=== PATIENT | male | born 1950 | race Caucasian/White ===

== ENCOUNTER 2022-03-24 05:55 | Day surgery (SDC) | payer MEDICARE, OTHER ==
[~2022-03-24] VITALS: Ht 177.8 cm; Wt 123.0 kg
[~2022-03-24 05:55] MED LIST: ADULT LOW DOSE81 MG PO; ELIQUIS5 MG PO; LISINOPRIL5 MG PO; MACULAR HEALTH1 EACH PO; MELATONIN3 MG PO; NORVASC10 MG PO; PRAVASTATIN SOD40 MG PO; PRAZOSIN HCL1 MG PO; PRO OMEGA; PROTONIX40 M1 PO; SOAANZ20 MG PO; TOPROL XL50 MG PO; TRAZODONE HCL50 MG PO; VENTOLIN HFA18 GM
--- NOTE | 2022-03-24 08:10 | NUR ---
03/24/22 0810 Aye Sheldon 0802 PT TO PACU SLEEPING NON REACTIVE. PT REMAINS IN AFIB, HAS HX OF AFIB.
--- NOTE | 2022-03-24 08:16 | NUR ---
PT IS ALERT, ORIENTED AND SUPPORTED BY HIS ELIE. ALL QUESTIONS ASKED ANSWERED. RISA LOEPZ HERE FOR PT. WILL FOLLOW
--- NOTE | 2022-03-24 10:25 | OR ---
[facility] [address], [place] [address] Signed DATE OF OPERATION: 03/24/2022 SURGEON: Inocente Meyer MD PREOPERATIVE DIAGNOSES: 1. Bloating. 2. Early satiety. 3. Personal history of colonic polyps in 2005. POSTOPERATIVE DIAGNOSES: 1. Small hiatal hernia. 2. Mild diffuse gastritis. 3. Minimal sigmoid diverticulosis. 4. Dlzsguf-zs-rhecwkfl internal hemorrhoids. PROCEDURES: 1. Esophagogastroduodenoscopy with CLOtest and biopsies of the antrum. 2. Colonoscopy with hot biopsy. ESTIMATED BLOOD LOSS: None. INDICATIONS: Fredis is a 71-year-old obese gentleman, asked to see me for upper and lower endoscopy. He spoke of upper and lower endoscopy around 2005. He said the upper endoscopy was unremarkable. He thinks two tiny polyps were removed from his colon. He is pretty sure he was told to follow up in 10 years. We have been trying to track down those results. He is pretty sure I did that for him. He is also having trouble with bloating and early satiety. He said he chews the food fine and swallows fine, and therefore does not have esophageal dysphagia. He thinks his stomach is pushing on the diaphragm. He also has a significant gag reflex. He talked about hoarseness of the voice, but he seemed to do fine in the office. No specific lower GI complaints. No family history of colon cancer or polyps. In the office, I gave him a pamphlet on upper and lower endoscopy. We reviewed the nature of those two tests. He understands there is risk including, but not limited to gas bloating, crampy abdominal pain, bleeding, perforation requiring surgery, and missed diagnosis. Also, because of his size and his advanced medical issues, we asked anesthesia provider help us with increased monitoring sedation with propofol. He had expressed understanding and wished to proceed. PROCEDURE NOTE: Electronically Signed By: INOCENTE MEYER MD 03/24/22 1025 PATIENT NAME: FREDIS FRANCIS OPERATIVE REPORT DATE OF : 52 REPORT #: [id number] PHYSICIAN: INOCENTE MEYER MD PCP: MITZI YANEZ MD REPORT IS CONFIDENTIAL AND NOT TO BE RELEASED WITHOUT AUTHORIZATION [facility] [address], [place] [address] Signed Fredis was taken into the endoscopy suite and placed in the supine semi-recumbent position. A bite block was utilized for the case. He was given monitored anesthesia care to include propofol per our nurse human resources receptionist. The adult gastroscope was introduced and advanced under direct visualization of camera without difficulty. The duodenum and pyloric channel were unremarkable. The stomach showed very mild diffuse erythematous changes. There were no ulcerations. We took a biopsy from the antrum for CLOtest as well as pathologic review. Upon retroflexion of the scope, he has a small hiatal hernia. We withdrew the scope up to the area of the GE junction, which was compliant without stricture. Overall, the Z-line remains intact. There was no Suh mucosa, he started to cough. We could not measure out the small hiatal hernia. The distal, middle, and upper esophagus were unremarkable. After this, the gas was suctioned out and the gastroscope removed. Fredis tolerated the upper endoscopy quite well. Fredis was then rotated into the left lateral decubitus position. He was maintained on monitored anesthesia care per our nurse human resources receptionist. A digital rectal exam was performed. He had a small external anal skin tag on the right, not much in the way of external hemorrhoids. Good sphincter tone. The adult colonoscope had been introduced and advanced quite readily into the cecum itself. His prep was good. We could easily see the appendiceal orifice and the ileocecal valve. The scope was then slowly withdrawn. We took pictures throughout for photodocumentation. He had just a few diverticula in the sigmoid colon. They were moderate in size, few in number, and scattered about. We saw no polyps on this occasion. Upon retroflexion of scope, he has buvdfyk-zc-padvyomv internal hemorrhoid columns. After this, the gag was suctioned out, colonoscope removed. Fredis tolerated the procedure quite well. RECOMMENDATIONS: I will see Fredis back in my office in 7 to 14 days to review his results. Inocente Meyer MD ALB/MODL /[id number] cc: Mitzi Yanez MD Electronically Signed By: INOCENTE MEYER MD 03/24/22 1025 PATIENT NAME: FREDIS FRANCIS OPERATIVE REPORT DATE OF : 52 REPORT #: [id number] PHYSICIAN: INOCENTE MEYER MD PCP: MITZI YANEZ MD REPORT IS CONFIDENTIAL AND NOT TO BE RELEASED WITHOUT AUTHORIZATION [place] [id number] Signed Patient Chart Inocente Meyer MD Copies: MITZI YANEZ MD, ANDREW L MD ~ Electronically Signed By: INOCENTE MEYER MD 03/24/22 1025 PATIENT NAME: TITOFREDIS ULICES OPERATIVE REPORT DATE OF : 52 REPORT #: [id number] PHYSICIAN: INOCENTE MEYER MD PCP: MITZI YANEZ MD REPORT IS CONFIDENTIAL AND NOT TO BE RELEASED WITHOUT AUTHORIZATION
--- NOTE | 2022-03-27 16:29 | PATH ---
[facility] [address] [place], [place] [address] Signed SPECIMEN(S): A ANTRUM/PYLORUS BIOPSY SPECIMEN SOURCE: A. ANTRUM/PYLORUS BIOPSY CLINICAL HISTORY: Bloating, early satiety, history of polyps. Post-op: Mild gastritis, small hiatal hernia, diverticulosis, hemorrhoids. FINAL PATHOLOGIC DIAGNOSIS: Stomach, antrum/pylorus, biopsy: - Antral mucosa with chronic, inactive gastritis. - Negative for Helicobacter organisms on HE stain. - Negative for dysplasia or malignancy. NAL:cml:C2NR MICROSCOPIC EXAMINATION: Histologic sections of all submitted blocks are examined by light microscopy. These findings, together with the gross examination, support the pathologic diagnosis. GROSS DESCRIPTION: The specimen, labeled "SH, 1," and designated on the requisition "antrum/pylorus," is received in formalin and consists of one brock soft tissue fragment that measures 0.4 cm in greatest dimension. The specimen is entirely submitted in cassette (A1). AT (under the direct supervision of a pathologist) The Gross Description was prepared using a voice recognition system. The report was reviewed for accuracy; however, sound-alike word errors, addition and/or deletions may occur. If there is any question about this report, please contact Client Services. PERFORMING LABORATORY: The technical component was performed by [facility], [address] [place] [id number] (CLIA# [id number]). [facility], [address] [address] (CLIA# [id number]). Diagnostician: Adelina Canchola MD Pathologist PATIENT NAME: BONI FRANCIS PATHOLOGY DATE OF : 52 REPORT #: [id number] PHYSICIAN: [facility] PCP: MITZI MAZA MD REPORT IS CONFIDENTIAL AND NOT TO BE RELEASED WITHOUT AUTHORIZATION [address] [address] Signed Electronically Signed 03/27/2022 Copies: ~ PATIENT NAME: BONI FRANCIS PATHOLOGY DATE OF : 52 REPORT #: [id number] PHYSICIAN: [facility] PCP: MITZI MAZA MD REPORT IS CONFIDENTIAL AND NOT TO BE RELEASED WITHOUT AUTHORIZATION
== END 2022-03-24 08:50 | disposition home or self-care (01) ==
LOC: DS 05:55 → OPS 05:55 → DS 07:00 → OPS 07:00 → DS 09:00
PROVIDERS: ATTEND Colon & Rectal Surgery
PROC: 0DB78ZX Excision of Stomach, Pylorus, Via Natural or Artificial Opening Endoscopic, Diagnostic (ICD-10-PCS; principal; 2022-03-24 07:00)
PROC: 0DJD8ZZ Inspection of Lower Intestinal Tract, Via Natural or Artificial Opening Endoscopic (ICD-10-PCS; 2022-03-24 07:00)
DX: K29.50 Unspecified chronic gastritis without bleeding (principal); K44.9 Diaphragmatic hernia without obstruction or gangrene; K57.30 Diverticulosis of large intestine without perforation or abscess without bleeding; K64.8 Other hemorrhoids; I10 Essential (primary) hypertension; E78.5 Hyperlipidemia, unspecified; I48.91 Unspecified atrial fibrillation; E66.9 Obesity, unspecified; Z68.41 Body mass index [BMI] 40.0-44.9, adult; Z86.010 Personal history of colon polyps
CPT/HCPCS: 36415; 87077; J0330; J0690; J1100; J1885; J2250; J2405; J2704; J2765; J3010; J7121

== ENCOUNTER 2022-12-03 21:03 | Emergency (ER) | payer MEDICARE, OTHER ==
[~2022-12-03] VITALS: Ht 177.8 cm; Wt 122.5 kg
[~2022-12-03 21:03] MED LIST changes: +FLOMAX0.4 MG PO; +HYDROCODON-ACE1 EA10 PO; +ONDANSETRON ODT4 MG PO
[2022-12-03] MEDS ORDERED: FLOMAX0.4 MG PO (23:47)
[2022-12-03] MEDS ORDERED: PERCOCET 5-3251 EACH PO (23:47)
[2022-12-03] MEDS ORDERED: ONDANSETRON ODT8 MG PO (23:47)
== END 2022-12-04 00:09 | disposition home or self-care (01) ==
LOC: ED 21:03
DX: N13.2 Hydronephrosis with renal and ureteral calculous obstruction (principal); I10 Essential (primary) hypertension; I48.91 Unspecified atrial fibrillation; N40.0 Benign prostatic hyperplasia without lower urinary tract symptoms; E78.00 Pure hypercholesterolemia, unspecified; Z95.2 Presence of prosthetic heart valve; Z79.899 Other long term (current) drug therapy; Z79.82 Long term (current) use of aspirin; Z79.01 Long term (current) use of anticoagulants
CPT/HCPCS: 36415; 74177; 80053; 81001; 83690; 85025; 85610; 96375; 96376; 99284-25; A9270; J2270; J2405

== ENCOUNTER 2023-01-06 11:52 | Emergency (ER) | payer MEDICARE, OTHER ==
[~2023-01-06] VITALS: Ht 177.8 cm; Wt 122.5 kg
[~2023-01-06 11:52] MED LIST changes: +ONDANSETRON ODT8 MG PO; +PERCOCET 5-3251 EACH PO
== END 2023-01-06 12:47 | disposition home or self-care (01) ==
LOC: ED 11:52
DX: S80.02XA Contusion of left knee, initial encounter (principal); W22.8XXA Striking against or struck by other objects, initial encounter; I10 Essential (primary) hypertension; I48.91 Unspecified atrial fibrillation; E78.00 Pure hypercholesterolemia, unspecified; Z79.899 Other long term (current) drug therapy; Z79.82 Long term (current) use of aspirin
CPT/HCPCS: 73560; 99283-25

== ENCOUNTER 2023-01-16 04:46 | Emergency (ER) | payer MEDICARE, OTHER ==
[~2023-01-16] VITALS: Ht 177.8 cm; Wt 122.7 kg
--- OUTSIDE RECORDS SUMMARY | 2023-01-16 04:49 | XMS ---
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 [place] has no Care Guidelines for this patient. Danica VISIT COUNT (12 MO.) 4 [facility] [facility]. TOTAL 4 NOTE: Visits indicate total known visits. ED/C VISIT TRACKING (12 MO.) 01/16/2023 04:47 [facility] [place] TYPE: Emergency COMPLAINT: - CATH ISSUE POST SURGICAL 01/06/2023 11:53 [facility] [place] TYPE: Emergency COMPLAINT: - EXTREMITY PAIN/INJURY RT KNEE DIAGNOSES: - Pure hypercholesterolemia, unspecified - Unspecified atrial fibrillation - Contusion of left knee, initial encounter - [facility] (current) use of aspirin - Other snf (current) drug therapy - Striking against or struck by other objects, initial encounter - Essential (primary) hypertension 12/03/2022 21:04 [facility] [place] TYPE: Emergency COMPLAINT: - LOWER ABD PAIN DIAGNOSES: - Essential (primary) hypertension - [facility] (current) use of aspirin - superintendent terminal (current) use of anticoagulants - 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 - Benign prostatic hyperplasia without lower urinary tract symptoms - Hydronephrosis with renal and ureteral calculous obstruction - Pure hypercholesterolemia, unspecified - Lower abdominal pain, unspecified - Unspecified atrial fibrillation - Presence of prosthetic heart valve 05/31/2022 05:59 [facility] [place] TYPE: Emergency COMPLAINT: - ABD PAIN DIAGNOSES: - [facility] (current) use of aspirin - Right lower quadrant pain - Other snf (current) drug therapy - Unspecified renal colic - Presence of prosthetic heart valve - Essential (primary) hypertension INPATIENT VISIT TRACKING (12 MO.) No inpatient visits to display in this time frame [email or web address]
[2023-01-16] MEDS ORDERED: FINASTERIDE5 MG PO (06:16)
[2023-01-16] MEDS ORDERED: CEPHALEXIN500 MG PO (06:16)
[2023-01-16] MEDS ORDERED: OXYCODONE HCL5 MG PO (06:16)
[2023-01-16] MEDS ORDERED: TAMSULOSIN HCL0.4 MG PO (06:17)
[2023-01-16] MEDS ORDERED: PANTOPRAZOLE SO40 MG PO (06:17)
== END 2023-01-16 10:07 | disposition home or self-care (01) ==
LOC: ED 04:46
DX: T83.098A Other mechanical complication of other urinary catheter, initial encounter (principal); R31.9 Hematuria, unspecified; I10 Essential (primary) hypertension; I48.91 Unspecified atrial fibrillation; E78.00 Pure hypercholesterolemia, unspecified; Z79.899 Other long term (current) drug therapy; Z79.82 Long term (current) use of aspirin
CPT/HCPCS: 36415; 80048; 85025; 85610; 96374; 99283-25; J2060